=== PATIENT | male | born 1995 | race Caucasian/White ===

== ENCOUNTER 2017-07-25 13:59 | Emergency (ER) | payer OTHER ==
[~2017-07-25] VITALS: Ht 177.8 cm; Wt 69.6 kg
[2017-07-25 14:41] LABS: HEMATOCRIT 46.3 % (38.0-50.0); MCH 30.4 PG (29.0-34.0); MCHC 34.6 G/DL (30.0-36.0); PLATELET COUNT 277 K/uL (156-360); RBC DIS.WIDTH-CV 12.2 % (11.8-14.6); RBC DIS.WIDTH-SD 39.6 % (39-53); RED BLOOD COUNT 5.26 M/uL (4.00-5.50)
[2017-07-25 14:51] LABS: APPEARANCE CLEAR ((CLEAR)); BILIRUBIN NEGATIVE; BLOOD NEGATIVE; COLOR YELLOW ((YELLOW)); GLUCOSE (STRIP) NEGATIVE; KETONES NEGATIVE; LEUKOCYTES NEGATIVE; NITRITE NEGATIVE; PROTEIN (STRIP) NEGATIVE; UCUL ADDED? NO; UROBILINOGEN 0.2 MG/DL (0.2-1.0)
[2017-07-25 14:52] LABS: ALBUMIN 4.8 g/dL (3.2-4.8); CHLORIDE 105 mEq/L (99-109); POTASSIUM 4.3 mEq/L (3.7-5.4); SODIUM 140 mEq/L (136-147)
[2017-07-25 14:54] LABS: GLUCOSE 100 mg/dL (70-99); TOTAL PROTEIN 7.9 g/dL (6.4-8.3)
[2017-07-25 14:56] LABS: TOTAL BILIRUBIN 0.6 mg/dL (0.0-1.0)
[2017-07-25 14:58] LABS: ALKALINE PHOSPHATASE 59 IU/L (3-129); GFR ESTIMATE (CALCULATED) > 59 mL/min/ (58.99-99999)
[2017-07-25 14:59] LABS: UREA NITROGEN (BUN) 12 mg/dL (9-23)
[2017-07-25 15:00] LABS: AST (GOT) 23 IU/L (2-34)
[2017-07-25 15:01] LABS: ALT (GPT) 38 IU/L (3-49); LIPASE 24 U/L (1.0-51.0)
[2017-07-25] MEDS ORDERED: BENTYL20 MG PO (15:52)
[2017-07-25] MEDS ORDERED: ZOFRAN ODT4 MG PO (15:58)
[2017-07-25 16:04] VITALS: BP 136/88
== END 2017-07-25 16:04 | disposition home or self-care (01) ==
LOC: EME 13:59
PROVIDERS: Nurse Practitioner Family
DX: R10.11 Right upper quadrant pain (principal); R11.0 Nausea; F17.200 Nicotine dependence, unspecified, uncomplicated
CPT/HCPCS: 76705; 80053; 81003; 83690; 85027; 99281; 99284